=== PATIENT | female | born 1980 ===

== ENCOUNTER 2020-11-05 09:44 | Outpatient (RCR) | payer OTHER ==
[2020-10-26 11:40] VITALS: BP 131/87
[2020-10-26] MEDS: IRON SUCROSE 200 MG/10 ML (VENOFER) VIAL IV SCH (11:47)
[2020-10-28] MEDS: IRON SUCROSE 200 MG/10 ML (VENOFER) VIAL IV SCH (12:58)
[2020-10-28 13:25] VITALS: BP 118/77
[2020-10-30 09:48] VITALS: BP 132/79
[2020-10-30] MEDS: IRON SUCROSE 200 MG/10 ML (VENOFER) VIAL IV SCH (10:12)
[2020-11-03] MEDS: IRON SUCROSE 200 MG/10 ML (VENOFER) VIAL IV SCH (10:14)
[2020-11-03 10:16] VITALS: BP 133/81
[~2020-11-05] VITALS: Ht 154.9 cm; Wt 95.5 kg
[2020-11-05] MEDS ORDERED: IRON SUCROSE 200 MG/10 ML (VENOFER) VIAL IV SCH (10:00)
[2020-11-05] MEDS: IRON SUCROSE 200 MG/10 ML (VENOFER) VIAL IV SCH (10:03)
[2020-11-05 10:08] VITALS: BP 124/84
== END 2020-11-05 10:25 | disposition home or self-care (01) ==
LOC: SDC 09:44
PROVIDERS: ATTEND Pediatrics
DX: D50.9 Iron deficiency anemia, unspecified (principal)
CPT/HCPCS: 96365

== ENCOUNTER 2021-03-09 05:39 | Outpatient (CLI) | payer OTHER ==
[~2021-03-09] VITALS: Ht 157.5 cm; Wt 95.7 kg
[2021-03-09] MEDS ORDERED: MONT10TA32 PO (10:32)
[2021-03-09] MEDS ORDERED: LEVO1TAB9 PO (10:32)
[2021-03-09] MEDS ORDERED: RT-ALBUINH INH (10:32)
[2021-03-09] MEDS ORDERED: BUDE10.2 IH (10:32)
[2021-03-09] MEDS ORDERED: CETI10TA17 PO (10:32)
[2021-03-09] MEDS ORDERED: OMEP20CA18 PO (10:32)
[2021-03-09] MEDS ORDERED: FLUT1BLS11 IH (10:32)
[2021-03-09] MEDS ORDERED: LEVO150C4 PO (11:04)
[2021-03-11] MEDS ORDERED: DOCU-143 PO (11:41)
[2021-03-11] MEDS ORDERED: ACHD5005 PO (11:41)
== END 2021-03-09 11:35 | disposition home or self-care (01) ==
LOC: PREOP 05:39
PROVIDERS: ATTEND Surgery
DX: Z01.818 Encounter for other preprocedural examination (principal)

== ENCOUNTER 2021-03-11 08:30 | Day surgery (SDC) | payer OTHER ==
[~2021-03-11] VITALS: Ht 157.5 cm; Wt 95.7 kg
[2021-03-11] VITALS (12 sets, daily range): BP systolic 105–131; BP diastolic 61–85
[~2021-03-11 08:30] MED LIST: BUDE10.2 IH; CETI10TA17 PO; FLUT1BLS11 IH; LEVO150C4 PO; LEVO1TAB9 PO; MONT10TA32 PO; OMEP20CA18 PO; RT-ALBUINH INH
[2021-03-11] MEDS ORDERED: LIDOCAINE/EPI 1%-1:100,000 (XYLOCAINE) 20ML ONE (08:33)
--- NOTE | 2021-03-11 09:06 | Progress Note-Pre Operative ---
Pre-Operative Progress Note H&P Reviewed The H&P was reviewed, patient examined and no changes noted. Date Seen by Provider: Mar 11, 2021 Time Seen by Provider: 09:06 Date H&P Reviewed: Mar 11, 2021 Time H&P Reviewed: 09:06 Pre-Operative Diagnosis: symptomatic cholelithiasis ERLIN MONTES DE OCA DO Mar 11, 2021 09:06
[2021-03-11] MEDS ORDERED: CLINDAMYCIN 600 MG/50 ML IVPB 50 ML IV ONE ×2 (09:11→09:15)
[2021-03-11] MEDS ORDERED: LACTATED RINGERS 1,000 ML IV PRN (09:15)
[2021-03-11] MEDS ORDERED: MIDAZOLAM 2 MG/2 ML (VERSED) VIAL ONE (09:15)
[2021-03-11] MEDS ORDERED: fentaNYL INJ 100 MCG/2 ML AMP ONE ×2 (09:15→11:36)
[2021-03-11] MEDS ORDERED: ROCURONIUM 10 MG/ML 5 ML SYRINGE IV ONE (10:04)
[2021-03-11] MEDS ORDERED: SEVOFLURANE (ULTANE) 15 ML INHAL SOLN ONE ×2 (10:04→11:32)
[2021-03-11] MEDS ORDERED: LIDOCAINE PF 2% 5 ML (XYLOCAINE) VIAL ONE (10:04)
[2021-03-11] MEDS ORDERED: ONDANSETRON 4 MG/2 ML (SDV) Z0FRAN ONE (10:04)
[2021-03-11] MEDS ORDERED: proPOfol 200 MG/20 ML (DIPRIVAN) VIAL IV ONE (10:04)
[2021-03-11] MEDS ORDERED: GLYCOPYRROLATE 0.2 MG/ML (ROBINUL) 2 ML VIAL ONE ×2 (10:18→11:32)
[2021-03-11] MEDS ORDERED: NEOSTIGMINE 3 MG/3 ML VIAL ONE (11:32)
--- NOTE | 2021-03-11 11:40 | Progress Note-Post Operative ---
Post-Operative Progess Note Surgeon (s)/Orthopedic Nurse Practitioner (s) Surgeon ERLIN MONTES DE OCA DO Orthopedic Nurse Practitioner: Dr. Arvizu to assist in dissection and closure. Pre-Operative Diagnosis symptomatic cholelithiasis Post-Operative Diagnosis same Procedure & Operative Findings Date of Procedure 03/11/21 Procedure Performed/Findings PROCEDURE: Laparoscopic cholecystectomy with intraoperative cholangiogram. COMPLICATIONS: None. PROCEDURE: The patient was taken to the operating suite and was prepped and draped in sterile fashion. A surgical pause was performed. Just superior to the umbilicus, a 12 mm incision was made. Dissection was taken down to the fascia, which was then scored and grasped with a Heriberto and the abdomen was then entered. A 0 Vicryl suture was placed in a [id number] fashion and a Bhandari trocar was placed and secured. Pneumoperitoneum was achieved. A 5mm trochar place in the subxyphoid and 2 in the right upper quadrant. The gallbladder was then grasped and elevated. Adehsions to the gallbladder were taken down with the [place] and blunt dissection. The cystic duct, and cystic artery were then dissected out. The artery was transected to give better visualization of the duct. The posterior side of the duct was further dissected with Laparoscopic Kitner. Cystic duct was short. Clip was placed on the distal portion of the cystic duct which was then partially transected. An arrow catheter was inserted into the duct. The cholangiogram was then performed. No filing defects and contrast made its way into the duodenum. Catheter removed. Laparoscopic endoloop was placed on proximal portion of the cystic duct after the duct was transected. Hook cautery was used to dissect the gallbladder from the gallbladder fossa achieving hemostasis. The gallbladder was placed in an Endobag and removed through the 12 mm trocar site. The abdomen was then reinspected. Copious amounts of irrigation were used to irrigate the abdomen and there were no signs of active bleeding. Hemostasis had been achieved. The 12 mm fascial defect was then closed with 0 Vicryl suture that had been placed in a hknhyh-me-crojk fashion. The abdomen was then desufflated, the trocars were removed. The abdomen was then washed and dried. The skin was then closed using 4-0 Monocryl in a subcuticular fashion. The abdomen was washed and dried and Skin Affix was place over incisions. Patient tolerated the procedure well without any complications and was taken to the recovery room in stable condition. Anesthesia Type general Estimated Blood Loss Estimated blood loss (mL): minimal Specimens/Packing Specimens Removed gallbladder ERLIN MONTES DE OCA DO Mar 11, 2021 11:40
[2021-03-11] MEDS ORDERED: DOCU-143 PO (11:41)
[2021-03-11] MEDS ORDERED: ACHD5005 PO (11:41)
--- NOTE | 2021-03-11 11:43 | Discharge Inst-Simple/Standard ---
Discharge Inst-Standard Discharge Medications New, Converted or Re-Newed RX: Transmitted to Pharmacy Patient Instructions/Follow Up Plan of Care/Instructions/FU: 2-3 weeks Joe Activity as Tolerated: No Discharge Diet: Regular Diet Other Inst to Patient Follow up Appt: Make appointment for 2 weeks. Instructions: No lifting greater than 10 pounds. No strenuous activity. May shower in 24 hours, no tub bath or soaking. Use incentive spirometer at home as directed. No Smoking Skin/Wound Care: You have special glue over incision, it will fall off on it's own. Symptoms to Report: Appetite Changes, Extremity Discoloration, Numbness/Tingling, Swelling Increased, Bleeding Excessive, Eyesight Changes, Pain Increased, Urine Color Change, Constipation(Persistent), Fever over 101 degree F, Pain/Pressure in chest, Urinating Difficulty, Cough Up/Vomit Blood, Heart Beat Irreg/Pounding, Pain/Pressure in jaw, Vaginal Bleeding Increase, Cramps in feet or legs, Lightheadedness, Pain/Pressure in shoulder, Diarrhea(Persistent), Memory Changes Suddenly, Questions/Concerns, Weight gain consecutive days, Dizziness/Fainting, Nausea/Vomiting, Shortness of Breath, Weight gain over 2 pounds. If eyes or skin turn yellow notify physician. If questions or concerns contact your physician Or seek help at emergency department. ERLIN MONTES DE OCA DO Mar 11, 2021 11:43
[2021-03-11] MEDS ORDERED: HYDROmorphone 2 MG/ML VIAL (DILAUDID) IV ONE (12:15)
[2021-03-11] MEDS ORDERED: ONDANSETRON 4 MG/2 ML (SDV) Z0FRAN IVP PRN (12:15)
[2021-03-11] MEDS ORDERED: HYDROcodone/APAP 5 MG/325 MG (LORTAB) TAB ONE (13:26)
[2021-03-11] MEDS ORDERED: HYDROcodone/APAP 5 MG/325 MG (LORTAB) TAB PO ONE (13:30)
--- NOTE | 2021-03-11 13:35 | Anesthesia-General Post-Op ---
General Patient Condition Mental Status/LOC: Same as Preop Cardiovascular: Satisfactory Nausea/Vomiting: Absent Respiratory: Satisfactory Pain: Controlled Complications: Absent Post Op Complications Complications None Follow Up Care/Instructions Patient Instructions None needed. Anesthesia/Patient Condition Patient Condition Patient is doing well, no complaints, stable vital signs, no apparent adverse anesthesia problems. No complications reported per nursing. D/C home per [facility] Criteria: Yes SANGEETA BACON CRNA Mar 11, 2021 13:35
--- NOTE | 2021-03-11 16:34 | Diagnostic Imaging Report ---
INDICATION: Cholecystectomy. Operative cholangiogram performed in the routine fashion. 46 images were obtained. A total of 10.8 seconds of fluoroscopy time was used. Contrast was injected through the cystic duct stump. Contrast fills the biliary tree. The biliary tree is nondilated. There are no filling defects. Contrast reaches the duodenum without obstruction. IMPRESSION: Unremarkable operative cholangiogram. Dictated by: Dictated on workstation # [id number]
== END 2021-03-11 16:14 | disposition home or self-care (01) ==
LOC: SDC 08:30
PROVIDERS: ATTEND Surgery
DX: K80.10 Calculus of gallbladder with chronic cholecystitis without obstruction (principal); E03.9 Hypothyroidism, unspecified; K21.9 Gastro-esophageal reflux disease without esophagitis; J45.909 Unspecified asthma, uncomplicated; E66.9 Obesity, unspecified; Z68.38 Body mass index [BMI] 38.0-38.9, adult; Z88.0 Allergy status to penicillin; Z79.890 Hormone replacement therapy; Z79.899 Other long term (current) drug therapy; Z88.1 Allergy status to other antibiotic agents; Z11.2 Encounter for screening for other bacterial diseases
CPT/HCPCS: 76000; 84703; 87081; 88304

== ENCOUNTER 2022-05-05 09:28 | Emergency (ER) | payer SELFPAY ==
[~2022-05-05] VITALS: Ht 152 cm; Wt 99.0 kg
[~2022-05-05 09:28] MED LIST changes: +ACHD5005 PO; +DOCU-143 PO; +MONT-40 PO; -MONT10TA32 PO
--- NOTE | 2022-05-05 09:38 | ED Chest Pain ---
General Stated Complaint: CHEST PAINS History of Present Illness Date Seen by Provider: May 05, 2022 Time Seen by Provider: 09:37 Initial Comments 42-year-old female presents with chest pain, some nausea. Some left-sided arm pain and neck pain. She reports that 2 days ago started his arm pain and nausea and now its become chest pain and pain up in the left side of her neck. She denies any shortness of breath. She denies any vomiting, fever, chills, diarrhea, sore throat or other associated symptoms. She has no known sick contacts. Allergies and Home Medications Allergies Coded Allergies: Penicillins (Verified Allergy, Severe, Angioedema, 03/09/21) amoxicillin (Verified Allergy, Severe, Angioedema, 03/09/21) Patient Home Medication List Home Medication List Reviewed: Yes Albuterol Sulfate (Ventolin Hfa) 1 Puff Puff, 2 PUFF INH Q4H PRN for SHORTNESS OF BREATH, (Reported) Entered as Reported by: RALEIGH VINCENT on 03/09/21 1032 Budesonide/Formoterol Fumarate (Symbicort 160-4.5 Mcg Inhaler) 10.2 Gm Hfa.aer .ad, 2 PUFF IH BID, (Reported) Entered as Reported by: RALEIGH VINCENT on 03/09/21 1032 Cetirizine HCl (Cetirizine HCl) 10 Mg Tablet, 10 MG PO DAILY, (Reported) Entered as Reported by: RALEIGH VINCENT on 03/09/21 1032 Docusate Sodium (Colace) 100 Mg Capsule, 100 MG PO BID Prescribed by: ERLIN MONTES DE OCA on 03/11/21 1141 Fluticasone Propion/Salmeterol (Fluticasone-Salmeterol 100-50) 1 Each Blst.w.dev, 1 EACH IH BID, (Reported) Entered as Reported by: RALEIGH VINCENT on 03/09/21 1032 Hydrocodone/Acetaminophen (Hydrocodone-Acetamin 5-325 mg) 1 Each Tablet, 1 EACH PO Q4H PRN for PAIN-MODERATE (5-7) Prescribed by: ERLIN MONTES DE OCA on 03/11/21 1141 Levonorgestrel-Ethin Estradiol (Aviane-28 Tablet) 1 Each Tablet, 1 EACH PO DAILY, (Reported) Entered as Reported by: RALEIGH VINCENT on 03/09/21 1032 Levothyroxine Sodium (Levothyroxine) 150 Mcg Capsule, 150 MCG PO DAILY, (Reported) Entered as Reported by: RALEIGH VINCENT on 03/09/21 1104 Montelukast Sodium (Montelukast Sodium) 10 Mg Tablet, 10 MG PO DAILY, (Reported) Entered as Reported by: RALEIGH VINCENT on 03/09/21 1032 Omeprazole (Omeprazole) 20 Mg Capsule.dr, 20 MG PO DAILY, (Reported) Entered as Reported by: RALEIGH VINCENT on 03/09/21 1032 Review of Systems Review of Systems Constitutional: No chills, No fever EENTM: See HPI Respiratory: Denies Cough, Denies Shortness of Air Cardiovascular: Chest Pain; Denies Irregular Heart Rate, Denies Lightheadedness, Denies Palpitations Gastrointestinal: Denies Abdominal Pain, Denies Diarrhea; Nausea; Denies Vomiting Genitourinary: No Symptoms Reported Musculoskeletal: see HPI Skin: no symptoms reported Psychiatric/Neurological: No Symptoms Reported Endocrine: No Symptoms Reported Past Njwxdkb-Ydrfyv-Hicegl Hx Immunizations Up To Date PED Vaccines UTD: No First/Initial COVID19 Vaccinat: JULY 31, 2020 Second COVID19 Vaccination Samy: AUGUST 28, 2020 Seasonal Allergies Seasonal Allergies: Yes Past Medical History Surgeries: Yes (LEFT HAND SURGERY) Orthopedic Respiratory: Yes Asthma Cardiac: No Neurological: No Genitourinary: No Gastrointestinal: Yes Gastroesophageal Reflux, Gall Bladder Disease Musculoskeletal: No Endocrine: Yes Hypothyroidsim HEENT: No Cancer: No Psychosocial: No Integumentary: No Blood Disorders: No Physical Exam Vital Signs Vital Signs - First Documented 05/05/22 09:32 Temp 36.3 Pulse 76 Resp 16 B/P (MAP) 142/92 (109) Pulse Ox 97 O2 Delivery Room Air Capillary Refill : Height, Weight, BMI Height: '" Weight: lbs. oz. kg; 38.57 BMI Method: General Appearance: No Apparent Distress, WD/WN, Obese HEENT: PERRL/EOMI, Moist Mucous Membranes Neck: Non Tender, Supple Respiratory: Lungs Clear, Normal Breath Sounds Cardiovascular: Regular Rate, Rhythm, No Edema Gastrointestinal: Non Tender, Soft Extremity: Normal Capillary Refill, Normal Inspection, Normal Range of Motion Neurologic/Psychiatric: Alert, Oriented x3, No Motor/Sensory Deficits, Normal Mood/Affect Skin: Normal Color Progress/Results/Core Measures Results/Orders Lab Results Laboratory Tests Test 05/05/22 08:51 05/05/22 09:57 Range/Units Influenza Type A (RT-PCR) Not Detected Not Detecte Influenza Type B (RT-PCR) Not Detected Not Detecte SARS-CoV-2 RNA (RT-PCR) Not Detected Not Detecte White Blood Count 8.5 4.3-11.0 10^3/uL Red Blood Count 5.09 3.80-5.11 10^6/uL Hemoglobin 14.2 11.5-16.0 g/dL Hematocrit 42 35-52 % Mean Corpuscular Volume 83 80-99 fL Mean Corpuscular Hemoglobin 28 25-34 pg Mean Corpuscular Hemoglobin Concent 34 32-36 g/dL Red Cell Distribution Width 13.2 10.0-14.5 % Platelet Count 321 130-400 10^3/uL Mean Platelet Volume 9.0 9.0-12.2 fL Immature Granulocyte % (Auto) 1 % Neutrophils (%) (Auto) 64 42-75 % Lymphocytes (%) (Auto) 22 12-44 % Monocytes (%) (Auto) 10 0-12 % Eosinophils (%) (Auto) 4 0-10 % Basophils (%) (Auto) 1 0-10 % Neutrophils # (Auto) 5.4 1.8-7.8 10^3/uL Lymphocytes # (Auto) 1.8 1.0-4.0 10^3/uL Monocytes # (Auto) 0.8 0.0-1.0 10^3/uL Eosinophils # (Auto) 0.3 0.0-0.3 10^3/uL Basophils # (Auto) 0.0 0.0-0.1 10^3/uL Immature Granulocyte # (Auto) 0.1 0.0-0.1 10^3/uL Sodium Level 139 135-145 MMOL/L Potassium Level 4.1 3.6-5.0 MMOL/L Chloride Level 107 98-107 MMOL/L Carbon Dioxide Level 25 21-32 MMOL/L Anion Gap 7 5-14 MMOL/L Blood Urea Nitrogen 11 7-18 MG/DL Creatinine 0.73 0.60-1.30 MG/DL Estimat Glomerular Filtration Rate 106 BUN/Creatinine Ratio 15 Glucose Level 109 H 70-105 MG/DL Calcium Level 9.2 8.5-10.1 MG/DL Corrected Calcium 9.1 8.5-10.1 MG/DL Magnesium Level 1.7 1.6-2.4 MG/DL Total Bilirubin 0.4 0.1-1.0 MG/DL Aspartate Amino Transf (AST/SGOT) 36 H 5-34 U/L Alanine Aminotransferase (ALT/SGPT) 45 0-55 U/L Alkaline Phosphatase 107 40-136 U/L Troponin I < 0.028 <0.028 NG/ML C-Reactive Protein High Sensitivity 0.77 H 0.00-0.50 MG/DL Total Protein 7.3 6.4-8.2 GM/DL Albumin 4.1 3.2-4.5 GM/DL Lipase 21 8-78 U/L My Orders Orders - STERLING VELÁZQUEZ L DO Ekg Tracing (05/05/22 09:33) Cbc With Automated Diff (05/05/22 09:42) Comprehensive Metabolic Panel (05/05/22 09:42) Hs C Reactive Protein (05/05/22 09:42) Lipase (05/05/22 09:42) Magnesium (05/05/22 09:42) Troponin I Callie (05/05/22 09:42) Influenza A And B By Pcr (05/05/22 09:42) Covid 19 Inhouse Test (05/05/22 09:42) Chest 1 View, Ap/Pa Only (05/05/22 09:42) Aspirin Chewable Tablet (Baby Aspirin Ch (05/05/22 09:45) Ekg Tracing (05/05/22 09:42) Monitor-Rhythm Ecg Trace Only (05/05/22 09:42) Ondansetron Injection (Zofran Injectio (05/05/22 09:45) Medications Given in ED Current Medications Medications Dose Ordered Sig/Jing Route Start Time Stop Time Status Last Admin Dose Admin Aspirin 324 mg ONCE ONCE PO 05/05/22 09:45 05/05/22 09:46 DC 05/05/22 09:51 324 MG Vital Signs/I&O 05/05/22 09:32 Temp 36.3 Pulse 76 Resp 16 B/P (MAP) 142/92 (109) Pulse Ox 97 O2 Delivery Room Air Progress Progress Note : Progress Note Patient's labs showed mild CRP is otherwise negative. Patient with a negative troponin x1. Patient's EKG shows no changes is normal. Patient x-ray shows no acute findings. Patient with no severe findings on physical exam. After reviewing all her information feel that she probably does not need a repeat troponin since symptoms of been going on for at least 12 hours. At this time I will not repeat the troponin. Patient symptoms likely viral versus just musculoskeletal. Recommend she use Tylenol ibuprofen. She should follow-up with her primary care provider if she continues to experience symptoms next week. She should return to the ER with any change. Patient low risk for ACS. She is stable and discharged Initial ECG Impression Date: May 05, 2022 Initial ECG Impression Time: 09:38 Initial ECG Rate: 74 Initial ECG Rhythm: Normal Sinus Initial ECG Intervals: Normal Initial ECG Impression: Normal Departure Impression Primary Impression: Chest pain Qualified Codes: R07.9 - Chest pain, unspecified Disposition: 01 HOME, SELF-CARE Condition: Stable Departure-Patient Inst. Referrals: [facility] [place] (PCP) Primary Care Physician NANCIE IRBY DO (Family) Primary Care Physician Patient Instructions: Chest Pain That Is Not Caused by the Heart (DC) Add. Discharge Instructions: Please follow-up with your primary care provider next week if symptoms or not improving. Return to the ER with any concerns. Tylenol or ibuprofen every 6 hours as needed for discomfort STERLING VELÁZQUEZ DO May 05, 2022 09:38
[2022-05-05] MEDS ORDERED: ONDANSETRON 4 MG/2 ML (SDV) Z0FRAN IVP ONE (09:45)
[2022-05-05] MEDS ORDERED: ASPIRIN 81 MG CHEW (CHILDREN'S ASA) PO ONE (09:45)
--- NOTE | 2022-05-05 09:59 | Diagnostic Imaging Report ---
INDICATION: Chest pain. Frontal chest obtained at 09:40 a.m. FINDINGS: Heart and mediastinal silhouette are normal in appearance. The lungs are clear. There is no pneumothorax or pleural fluid. IMPRESSION: Negative chest. Dictated by: Dictated on workstation # [id number]
[2022-05-05 10:00] LABS: BASOPHILS % (AUTO) 1 % (0-10); EOSINOPHILS # (AUTO) 0.3 10^3/uL (0.0-0.3); EOSINOPHILS % (AUTO) 4 % (0-10); HEMATOCRIT 42 % (35-52); HEMOGLOBIN 14.2 g/dL (11.5-16.0); LYMPHOCYTES # (AUTO) 1.8 10^3/uL (1.0-4.0); LYMPHOCYTES % (AUTO) 22 % (12-44); MEAN CORPUSCULAR HEMOGLOBIN 28 pg (25-34); MEAN CORPUSCULAR HGB CONC 34 g/dL (32-36); MEAN CORPUSCULAR VOLUME 83 fL (80-99); MONOCYTES # (AUTO) 0.8 10^3/uL (0.0-1.0); MONOCYTES % (AUTO) 10 % (0-12); NEUTROPHILS # (AUTO) 5.4 10^3/uL (1.8-7.8); NEUTROPHILS % (AUTO) 64 % (42-75); PLATELET COUNT 321 10^3/uL (130-400); WHITE BLOOD COUNT 8.5 10^3/uL (4.3-11.0)
[2022-05-05 10:23] LABS: ALANINE AMINOTRANSFERASE 45 U/L (0-55); ALBUMIN 4.1 GM/DL (3.2-4.5); ALKALINE PHOSPHATASE 107 U/L (40-136); BILIRUBIN,TOTAL 0.4 MG/DL (0.1-1.0); BUN/CREATININE RATIO 15; CALCIUM 9.2 MG/DL (8.5-10.1); CARBON DIOXIDE 25 MMOL/L (21-32); CHLORIDE 107 MMOL/L (98-107); CREATININE SERUM 0.73 MG/DL (0.60-1.30); GFR ESTIMATED 106; GLUCOSE 109 MG/DL (70-105); LIPASE 21 U/L (8-78); MAGNESIUM 1.7 MG/DL (1.6-2.4); POTASSIUM 4.1 MMOL/L (3.6-5.0); SODIUM 139 MMOL/L (135-145); TOTAL PROTEIN 7.3 GM/DL (6.4-8.2)
[2022-05-05 10:50] VITALS: BP 111/76
== END 2022-05-05 10:50 | disposition home or self-care (01) ==
LOC: EDUNIT# 09:28 → ER 09:30
DX: R07.9 Chest pain, unspecified (principal); Z28.310 Unvaccinated for COVID-19; Z20.822 Contact with and (suspected) exposure to COVID-19
CPT/HCPCS: 36415; 71045; 80053; 83690; 83735; 84484; 85025; 86141; 87636; 93005; 93041

== ENCOUNTER 2022-11-11 20:47 | Outpatient (CLI) | payer OTHER | END 2022-11-12 06:33 | disposition home or self-care (01) | LOC: SLEEP 20:47 | PROVIDERS: ATTEND Pediatrics | DX: G47.33 Obstructive sleep apnea (adult) (pediatric) (principal) | CPT/HCPCS: 95810 ==